=== PATIENT | female | born 1995 | race Caucasian/White ===

== ENCOUNTER 2017-05-22 23:31 | Emergency (ER) | payer OTHER ==
[2017-05-22] MEDS ORDERED: Ciprofloxacin 500 MG TAB ONE (23:38)
== END 2017-05-22 23:45 | disposition home or self-care (01) ==
LOC: ERS 23:31
DX: Z77.21 Contact with and (suspected) exposure to potentially hazardous body fluids (principal); J45.909 Unspecified asthma, uncomplicated
CPT/HCPCS: 99283

== ENCOUNTER 2017-11-05 09:06 | Outpatient (CLI) | payer OTHER ==
--- NOTE | 2017-11-05 10:10 | ULT ---
SONOGRAM ABDOMEN COMPLETE: HISTORY: Abdominal pain and distention. FINDINGS: Gallbladder has a normal appearance. No stones. The common duct is 0.4 cm. Liver unremarkable with out focal mass or intrahepatic biliary dilatation. No free fluid. The spleen, kidneys, and visualiz ed portions of the abdominal aorta, IVC, and pancreas are unremarkable. IMPRESSION: No significant abnormalities are demonstrated. POS: [facility]
== END 2017-11-05 09:07 | disposition home or self-care (01) ==
LOC: SCSULT 09:06
PROVIDERS: ATTEND Internal Medicine Gastroenterology
DX: K92.2 Gastrointestinal hemorrhage, unspecified (principal); R14.0 Abdominal distension (gaseous); R19.8 Other specified symptoms and signs involving the digestive system and abdomen; E53.8 Deficiency of other specified B group vitamins; R10.9 Unspecified abdominal pain; R63.5 Abnormal weight gain; R68.81 Early satiety
CPT/HCPCS: 76700